=== PATIENT | female | born 1965 | race Hispanic/Latino ===

== ENCOUNTER 2016-10-28 12:21 | Inpatient (IN) | payer MEDICARE, OTHER ==
--- NOTE | 2016-10-28 17:48 | Emergency Department Report ---
ED General Adult HPI - General Chief complaint: Chest Pain Stated complaint: LEG PAIN Time Seen by Provider: 10/28/16 17:38 Source: patient, RN notes reviewed, old records reviewed Mode of arrival: Ambulatory Limitations: No Limitations - History of Present Illness Initial comments: This is a 51-year-old female, previously unknown to me. Patient has a history of diabetes, chronic pain, and his dependence on narcotics. Patient is currently a voluntary placement in a care facility trying to detox. Patient presents to the ER complaining of chest pain. The chest pain is right- sided. It does not radiate anywhere. It is associated with shortness of breath. She admits to cough, shortness of breath. There is no leg pain. There is no leg swelling. No recent trips greater than 4 hours. No recent hospital admissions. Does not change with food. Patient reports she feels like this feels like prior episodes of pneumonia. No exacerbating or relieving factors. -: Gradual Location: chest Quality: aching Consistency: intermittent Improves with: none Worsens with: none Associated Symptoms: chest pain, cough, shortness of breath, weakness - Related Data Home Medications Medication Instructions Recorded Confirmed Last Taken Unobtainable [Unobtainable] 01/09/14 01/09/14 Unknown Allergies Allergy/AdvReac Type Severity Reaction Status Date / Time iodine Allergy Shortness Verified 10/28/16 20:03 of Breath Penicillins Allergy Anaphylaxis Verified 10/28/16 20:03 ED Review of Systems ROS: Stated complaint: LEG PAIN Other details as noted in HPI Constitutional: malaise, weakness Eyes: denies: vision change ENT: denies: epistaxis Respiratory: cough, shortness of breath Cardiovascular: chest pain Gastrointestinal: denies: vomiting Genitourinary: as per HPI Musculoskeletal: back pain (chronic) Skin: as per HPI Neurological: headache Psychiatric: anxiety. denies: homicidal thoughts, suicidal thoughts ED Past Medical Hx - Past Medical History Previous Medical History?: Yes Hx Hypertension: No Hx Heart Attack/AMI: No Hx Congestive Heart Failure: No Hx Diabetes: Yes Hx Deep Vein Thrombosis: No Hx Pulmonary Embolism: No Hx GERD: No Hx Liver Disease: No Hx Renal Disease: No Hx Sickle Cell Disease: No Hx Arthritis: No Hx Headaches / Migraines: No Hx Seizures: No Hx Kidney Stones: No Hx Asthma: No Hx COPD: No Hx Tuberculosis: No Hx Dementia: No Hx HIV: No Additional medical history: Backpain, Hx arms broken - Surgical History Past Surgical History?: Yes Hx Coronary Stent: No Hx Open Heart Surgery: No Hx Pacemaker: No Hx Internal Defibrillator: No Hx Cholecystectomy: Yes Hx Appendectomy: No Hx Breast Surgery: No Additional Surgical History: hysterectomy - Social History Smoking Status: Current Every Day Smoker Substance Use Type: None - Medications Home Medications: Home Medications Medication Instructions Recorded Confirmed Last Taken Type Unobtainable [Unobtainable] 01/09/14 01/09/14 Unknown History ED Physical Exam - General Limitations: No Limitations General appearance: alert, in no apparent distress - Head Head exam: Present: atraumatic, normocephalic - Eye Eye exam: Present: normal appearance, EOMI. Absent: nystagmus - ENT ENT exam: Present: normal exam, mucous membranes dry - Neck Neck exam: Present: normal inspection, full ROM. Absent: tenderness, meningismus - Respiratory Respiratory exam: Present: normal lung sounds bilaterally. Absent: respiratory distress, wheezes, rales, rhonchi, stridor, chest wall tenderness - Cardiovascular Cardiovascular Exam: Present: normal rhythm, tachycardia, normal heart sounds. Absent: bradycardia, systolic murmur, diastolic murmur, rubs, gallop - GI/Abdominal GI/Abdominal exam: Present: soft, normal bowel sounds. Absent: distended, tenderness, guarding, rebound, rigid, pulsatile mass - Extremities Exam Extremities exam: Present: normal inspection, full ROM, normal capillary refill. Absent: tenderness, pedal edema, joint swelling, calf tenderness - Back Exam Back exam: Present: normal inspection, full ROM. Absent: tenderness, CVA tenderness (R), CVA tenderness (L), muscle spasm, paraspinal tenderness, vertebral tenderness - Neurological Exam Neurological exam: Present: alert, other (Extraocular movements intact. Tongue midline. No facial droop. Facial sensation intact to light touch in the V1, V2 , V3 distribution bilaterally. 5 and 5 strength in 4 extremities.. Sensation is intact to light touch in 4 extremities.). Absent: motor sensory deficit - Psychiatric Psychiatric exam: Present: anxious - Skin Skin exam: Present: warm, dry, intact, normal color. Absent: rash ED Course Vital Signs 10/28/16 10/28/16 10/28/16 13:02 16:02 18:00 Temperature 98.2 F Pulse Rate 105 H 109 H Respiratory 18 16 20 Rate Blood Pressure 106/71 Blood Pressure 103/66 [Left] O2 Sat by Pulse 100 98 98 Oximetry 10/28/16 10/28/16 10/28/16 18:42 19:00 19:48 Temperature Pulse Rate 98 H 105 H 104 H Respiratory 17 20 Rate Blood Pressure 93/66 93/66 Blood Pressure [Left] O2 Sat by Pulse 98 98 Oximetry - Reevaluation(s) Reevaluation #1: 10/28/16 17:58 Differential diagnosis: Intracranial injury, acute coronary syndrome, pneumonia , pulmonary embolus, drug seeking behavior Assessment and plan: 51-year-old female with right-sided chest pain, reported cough and shortness of breath. No DVT or pulmonary embolus risk factors, low risk by well's criteria. The patient is a poor historian, seems difficult to redirect, she does not meet 1013 criteria. She did report that she had a mechanical fall 2 days ago and landed on her left forehead. There is no midline cervical spine tenderness or step-offs. There is no extremity weakness or numbness, she has a GCS of 15, with an NIH score of 0. She was seen at another hospital, but reported that she was given only nitroglycerin and treated for "heart attack", and patient seems to think that because she has right-sided chest pain she is therefore excluded from acute coronary syndrome. The patient does have a chronic pain component, and she may benefit from analgesia in order to obtain better history. We will check basic laboratory studies, x-ray of the chest, CT scan of the head, and reassess. The patient does endorse ingesting crack and illegal drugs earlier on this week, but she is clinically sober at this time. 10/28/16 18:00 Reevaluation #2: 10/28/16 21:28 CT chest demonstrates right upper lobe infiltrate. PPD will be placed on the left upper extremity. Patient endorses anaphylaxis to penicillins. I will withhold fluoroquinolones in case the patient requires TB treatment. She will be treated for community-acquired pneumonia (presumed) with azithromycin and doxycycline. She will be placed on TB isolation. No pulmonary embolus is noted. Hospital physician, Dr. Dougherty accepts the patient to her service. ED Medical Decision Making - Lab Data Result diagrams: 10/28/16 17:55 10/28/16 17:55 Vital Signs 10/28/16 10/28/16 13:02 16:02 Temperature 98.2 F Pulse Rate 105 H 109 H Respiratory 18 16 Rate Blood Pressure 106/71 Blood Pressure 103/66 [Left] O2 Sat by Pulse 100 98 Oximetry - EKG Data 10/28/16 17:59 Sinus tachycardia, 105 bpm, atrial enlargement, abnormal EKG, not consistent with STEMI. Limited by motion artifact. - Radiology Data Radiology results: report reviewed, image reviewed X-ray chest demonstrates right perihilar atelectasis. CT chest M stretch right upper lobe infiltrate, no pulmonary embolus. Critical care attestation.: If time is entered above; I have spent that time in minutes in the direct care of this critically ill patient, excluding procedure time. ED Disposition Clinical Impression: Pneumonia Qualifiers: Pneumonia type: due to unspecified organism Laterality: right Lung location: upper lobe of lung Qualified Code(s): J18.9 - Pneumonia, unspecified organism Disposition: OP ADMITTED IP TO THIS HOSP Is pt being admited?: Yes Does the pt Need Aspirin: Yes Condition: Stable Instructions: Bacterial Pneumonia (ED)
[2016-10-28 18:06] LABS: Hematocrit 35.2 % (30.3-42.9); Mean Corpuscular HGB Conc 34 % (30-34); Mean Corpuscular Hemoglobin 31 pg (28-32); Mean Corpuscular Volume 92 fl (79-97); Platelet Count 244 K/mm3 (140-440); Red Blood Count 3.82 M/mm3 (3.65-5.03); Red Cell Distribution Width 13.6 % (13.2-15.2); White Blood Count 10.5 K/mm3 (4.5-11.0)
[2016-10-28 18:23] LABS: BUN/Creatinine Ratio 12.85; Blood Urea Nitrogen 9 mg/dL (7-17); Calcium 8.2 mg/dL (8.4-10.2); Carbon Dioxide 23 mmol/L (22-30); Chloride 97.5 mmol/L (98-107); Glucose 93 mg/dL (65-100); Potassium 3.9 mmol/L (3.6-5.0); Sodium 134 mmol/L (137-145)
[2016-10-28 18:26] LABS: Anion Gap 17 mmol/L
[2016-10-28 18:32] LABS: Albumin 3.1 g/dL (3.9-5); Albumin/Globulin Ratio 1.2 %; Bilirubin,Direct 0.4 mg/dL (0-0.2); Bilirubin,Indirect 0.8 mg/dL; Bilirubin,Total 1.2 mg/dL (0.1-1.2); Total Protein 5.6 g/dL (6.3-8.2)
[2016-10-28 18:34] LABS: INR 1.17 (0.87-1.13)
--- NOTE | 2016-10-28 18:59 | Cat Scan Report ---
FINAL REPORT EXAM: CT HEAD/BRAIN WO CON HISTORY: fall head trauma TECHNIQUE: Noncontrast serial axial images from skull base to vertex PRIORS: None. FINDINGS: There is no mass effect or midline shift. There are no abnormal intra or extra-axial fluid collections. Cortical sulci and lateral ventricles are within normal limits for size and configuration. Basilar cisterns are patent. No acute intracranial hemorrhage is identified. Visualized paranasal sinuses and mastoid air cells are well aerated. No acute osseous abnormality is identified. IMPRESSION: 1. No acute intracranial hemorrhage is identified.
[2016-10-28] MEDS ORDERED: NACL ONE (19:00)
[2016-10-28] MEDS: ASPIRIN PO ONE ×2 (19:06→19:48)
[2016-10-28] MEDS: NITROSTAT SL ONE ×2 (19:09→19:48)
[2016-10-28] MEDS: NACL 0.9% 1000 ML 1,000 ML IV ONE ×2 (19:11→19:48)
[2016-10-28] MEDS: DILAUDID IV ONE ×2 (19:11→19:49)
--- NOTE | 2016-10-28 21:04 | Cat Scan Report ---
FINAL REPORT EXAM: CT ANGIO CHEST HISTORY: cp sob TECHNIQUE: Serial axial images through the chest during intravenous administration of 100 milliliters Omni 350 contrast with coronal and sagittal reconstruction PRIORS: None. FINDINGS: Emphysematous changes are seen in the lungs, bilaterally. No pleural effusion is seen. There is an area of dense consolidation in the medial aspect of the right upper lobe that measures approximately 4 x 5 centimeters in axial dimension. The heart measures approximately 10.4 centimeters in length. There is a 2 centimeter right hilar lymph node noted. No abnormal filling defects are identified in the pulmonary arteries. No gross abnormality is seen in the visualized portion of the abdomen. There are degenerative changes in the spine. IMPRESSION: 1. No definite acute pulmonary embolism is identified. 2. Right upper lobe infiltrate. Follow-up is recommended following treatment to assure resolution. 3. Prominent right hilar lymph node is noted. This may be reactive.
[2016-10-28] MEDS ORDERED: ZITHROMAX PO ONE (21:14)
[2016-10-28] MEDS ORDERED: VIBRAMYCIN PO ONE (21:15)
[2016-10-28] MEDS ORDERED: APLISOL ID ONE (21:28)
[2016-10-28] MEDS ORDERED: TYLENOL PO PRN (23:52)
[2016-10-28] MEDS ORDERED: MILK OF MAGNESIA PO PRN (23:52)
[2016-10-28] MEDS ORDERED: DULCOLAX PR PRN (23:52)
[2016-10-28] MEDS ORDERED: ZOFRAN IV PRN (23:52)
--- NOTE | 2016-10-29 00:48 | History and Physical Report ---
History of Present Illness Date of examination: 10/28/16 Date of admission: 10/28/16 22:27 History of present illness: 51-year-old woman with a history of chronic back pain, depression was sent emergency room from [place] for evaluation. Patient states she checked herself in [place] because she was depressed, no suicidal or homicidal ideation. She felt extremely weak, they sent her here for evaluation. She states she had a cough, nonproductive, shortness of breath, no fever or chills. Unclear about weight loss, no night sweats. She states she fell at home, has a bruise on the right thigh. Patient states whenever she gets depressed she self medicates herself with just about any drugs. She has been using crack over the last few days PAST SURGICAL HISTORY: Hysterectomy, neck, back, bilateral arm surgery, cholecystectomy SOCIAL HISTORY: Smokes 6 cigarettes a day, denies alcohol, admit to drug use FAMILY HISTORY: Hypertension Medications and Allergies Allergies Allergy/AdvReac Type Severity Reaction Status Date / Time iodine Allergy Shortness Verified 10/28/16 20:03 of Breath Penicillins Allergy Anaphylaxis Verified 10/28/16 20:03 Home Medications Medication Instructions Recorded Confirmed Last Taken Type Unobtainable [Unobtainable] 01/09/14 01/09/14 Unknown History Active Meds: Active Medications Acetaminophen (Tylenol) 650 mg PO Q4H PRN PRN Reason: Pain MILD(1-3)/Fever >100.5/ANGUIANO Bisacodyl (Dulcolax) 10 mg [place] QDAY PRN PRN Reason: Constipation unrelieved by MOM Enoxaparin Sodium (Lovenox) 40 mg SUB-Q QDAY [facility] Ceftriaxone Sodium (Rocephin/Ns 1 Gm/50 Ml) 50 mls @ 100 mls/hr IV Q24HR [facility] PRN Reason: Protocol Magnesium Hydroxide (Milk Of Magnesia) 30 ml PO Q4H PRN PRN Reason: Constipation Ondansetron HCl (Zofran) 4 mg IV Q8H PRN PRN Reason: N/V unrelieved by Reglan Oxycodone/Acetaminophen (Percocet 5/325) 1 tab PO Q6H PRN PRN Reason: Pain, Moderate (4-6) Exam - Physical Exam Narrative exam: Gen. appearance: Patient lying in bed, no apparent distress HEENT: Normocephalic, atraumatic, pupils equally round and reactive to light, extraocular movement intact, and no sclericterus,. No JVD or thyromegaly or nodule,neck supple, no carotid bruit ,mucous membranes moist, no exudate or erythema Heart: S1, S2, regular rate and rhythm Lungs: Crackles in the right upper lobe, breathing comfortable Abdomen: Positive bowel sounds, nontender, nondistended, no organomegaly Extremity: No edema, cyanosis, clubbing Skin: No rash, nodules, warm, dry Neuro: Oriented 3, cranial nerves II-12 intact, speech is fluent, motor and sensory intact - Constitutional Vitals: Temp Pulse Resp BP Pulse Ox 98.2 F 104 H 20 93/66 98 10/28/16 13:02 10/28/16 19:48 10/28/16 19:00 10/28/16 19:48 10/28/16 19:00 Results - Labs CBC & Chem 7: 10/28/16 17:55 10/28/16 17:55 - Imaging and Cardiology Chest x-ray: image reviewed CT scan - chest: report reviewed Assessment and Plan Right upper lobe pneumonia, rule out to be Depression Admit to medicine Start IV Rocephin, azithromycin, obtain sputum culture for AFB Follow- PPD Start DVT prophylaxis
[2016-10-29] MEDS ORDERED: APLISOL ID ONE (01:57)
[2016-10-29] MEDS: PERCOCET 5/325 PO PRN ×4 (03:08→19:52)
[2016-10-29] MEDS: LOVENOX SUB-Q SCH (09:38)
--- NOTE | 2016-10-29 09:58 | XRay Report ---
Single view chest: History: Chest pain. Findings: Normal cardiomediastinal silhouette. Trachea is midline. No consolidation, pneumothorax or pleural effusion. Impression: No acute cardiopulmonary findings.
[2016-10-29] MEDS ORDERED: PERCOCET 5/325 PO PRN (13:26)
[2016-10-29] MEDS ORDERED: CITRATE OF MAGNESIA PO PRN (13:28)
--- NOTE | 2016-10-29 13:36 | Progress Note ---
Assessment and Plan Assessment and plan: Probable gram-negative pneumonia to rule out pulmonary TB - Patient is on IV antibiotics - On respiratory isolation - Chest x-ray shows right upper lobe infiltrates - PPD - ID consult Patient came from [facility] [place] - home medications reconciled Prophylaxis Lovenox Disposition - Continue inpatient care History Interval history: Complaints and all over, dry cough, no fever or chills, admitted for weight loss Hospitalist Physical - Physical exam Narrative exam: Not in cardiopulmonary distress. The patient appeared well nourished and normally developed. Vital signs as documented. Head exam is unremarkable. No scleral icterus . Neck is without jugular venous distension, thyromegaly, or carotid bruits. Lungs are clear to auscultation. Cardiac exam reveals regular rate and Rhythm. First and second heart sounds normal. No murmurs, rubs or gallops. Abdominal exam reveals normal bowel sounds, no masses, no organomegaly and no aortic enlargement. Extremities bruise on the right hip and right knee from fall. FIBER ARTIST: Alert and oriented 3. No focal weakness. - Constitutional Vitals: Temp Pulse Resp BP Pulse Ox 98.3 F 92 H 16 92/51 96 10/29/16 08:00 10/29/16 08:00 10/29/16 08:00 10/29/16 08:00 10/29/16 10:00 Results - Labs CBC & Chem 7: 10/28/16 17:55 10/28/16 17:55 Labs: Laboratory Last Values WBC 10.5 K/mm3 (4.5-11.0) 10/28/16 17:55 RBC 3.82 M/mm3 (3.65-5.03) 10/28/16 17:55 Hgb 12.0 gm/dl (10.1-14.3) 10/28/16 17:55 Hct 35.2 % (30.3-42.9) 10/28/16 17:55 MCV 92 fl (79-97) 10/28/16 17:55 MCH 31 pg (28-32) 10/28/16 17:55 MCHC 34 % (30-34) 10/28/16 17:55 RDW 13.6 % (13.2-15.2) 10/28/16 17:55 Plt Count 244 K/mm3 (140-440) 10/28/16 17:55 PT 14.8 Sec. (12.2-14.9) 10/28/16 17:55 INR 1.17 (0.87-1.13) H 10/28/16 17:55 D-Dimer 323.44 ng/mlDDU (0-234) H 10/28/16 17:55 Sodium 134 mmol/L (137-145) L 10/28/16 17:55 Potassium 3.9 mmol/L (3.6-5.0) 10/28/16 17:55 Chloride 97.5 mmol/L (98-107) L 10/28/16 17:55 Carbon Dioxide 23 mmol/L (22-30) 10/28/16 17:55 Anion Gap 17 mmol/L 10/28/16 17:55 BUN 9 mg/dL (7-17) 10/28/16 17:55 Creatinine 0.7 mg/dL (0.7-1.2) 10/28/16 17:55 Estimated GFR > 60 ml/min 10/28/16 17:55 BUN/Creatinine Ratio 12.85 % 10/28/16 17:55 Glucose 93 mg/dL (65-100) 10/28/16 17:55 Calcium 8.2 mg/dL (8.4-10.2) L 10/28/16 17:55 Total Bilirubin 1.2 mg/dL (0.1-1.2) 10/28/16 17:55 Direct Bilirubin 0.4 mg/dL (0-0.2) H 10/28/16 17:55 Indirect Bilirubin 0.8 mg/dL 10/28/16 17:55 AST 55 units/L (5-40) H 10/28/16 17:55 ALT 59 units/L (7-56) H 10/28/16 17:55 Alkaline Phosphatase 115 units/L (35-129) 10/28/16 17:55 Total Creatine Kinase 46 units/L (30-135) 10/28/16 17:55 Troponin T < 0.010 ng/mL (0.00-0.029) 10/28/16 17:55 Total Protein 5.6 g/dL (6.3-8.2) L 10/28/16 17:55 Albumin 3.1 g/dL (3.9-5) L 10/28/16 17:55 Albumin/Globulin Ratio 1.2 % 10/28/16 17:55 Lipase 19 units/L (13-60) 10/28/16 17:55
[2016-10-29] MEDS: NEURONTIN PO SCH ×2 (14:53→22:12)
[2016-10-29] MEDS: ABILIFY PO SCH (14:54)
--- NOTE | 2016-10-29 19:58 | Consultation ---
History of Present Illness - Reason for Consult Consult date: 10/29/16 RUL pneumonia Requesting physician: ADEEL PRESCOTT - History of Present Illness Irena Liu is a 51 y/o female with chronic neck and back pain and chronic substance abuse who was admitted to [facility] on with shortness of breath and chest pain. Chest CT scan shows a right upper lobe infiltrate. She was referred from [facility] where she was trying to get admitted to get back on chronic oxycodone. She states that she fell on 10/27 and injured her chest and right side and wonders if that could be what's going on. She has not had any significant cough, sputum production, hemoptysis, fever, chills or night sweats. She has no known exposure to anyone with tuberculosis and states that she was last tested with a skin test "when she was in [facility] several years ago was "and that it was negative. She last used drugs about a week ago with inhaled and amphetamines and crack cocaine. She states that she does not shoot up drugs. Her weight has been essentially stable. She does smoke up to 2 packs of cigarettes a day and has done so for many years. Review of systems General: See HPI CV: no exertional chest pain, no palpitations Chest: See HPI GI: no abdominal pain, no N/V, no diarrhea : no change in urinary frequency, no dysuria, no hematuria Skin: no rashes; Ext: Chronic back and neck pain as per HPI. Neuro: no headaches, no numbness/tingling, no tremors Endocrine: No history of diabetes. Psych: Chronic depression. Substance abuse as per above. Infectious diseases: No HIV risk factors, No history of STDs, No significant travel or animal contact history. Medications and Allergies Allergies Allergy/AdvReac Type Severity Reaction Status Date / Time iodine Allergy Shortness Verified 10/28/16 20:03 of Breath Penicillins Allergy Anaphylaxis Verified 10/28/16 20:03 Home Medications Medication Instructions Recorded Confirmed Last Taken Type Unobtainable [Unobtainable] 01/09/14 01/09/14 Unknown History Active Meds: Active Medications Acetaminophen (Tylenol) 650 mg PO Q4H PRN PRN Reason: Pain MILD(1-3)/Fever >100.5/ANGUIANO Aripiprazole (Abilify) 10 mg PO QDAY [facility] Last Admin: 10/29/16 14:54 Dose: 10 mg Bisacodyl (Dulcolax) 10 mg [place] QDAY PRN PRN Reason: Constipation unrelieved by MOM Clonazepam (Klonopin) 1 mg PO BID [facility] Last Admin: 10/29/16 14:53 Dose: 1 mg Enoxaparin Sodium (Lovenox) 40 mg SUB-Q QDAY [facility] Last Admin: 10/29/16 09:38 Dose: 40 mg Gabapentin (Neurontin) 300 mg PO Q8HR [facility] Last Admin: 10/29/16 14:53 Dose: 300 mg Ceftriaxone Sodium (Rocephin/Ns 1 Gm/50 Ml) 50 mls @ 100 mls/hr IV Q24HR [facility] PRN Reason: Protocol Magnesium Citrate (Citrate Of Magnesia) 300 ml PO QDAY PRN PRN Reason: Bowel Movement Magnesium Hydroxide (Milk Of Magnesia) 30 ml PO Q4H PRN PRN Reason: Constipation Ondansetron HCl (Zofran) 4 mg IV Q8H PRN PRN Reason: N/V unrelieved by Reglan Oxycodone/Acetaminophen (Percocet 5/325) 2 tab PO Q4H PRN PRN Reason: Pain, Moderate (4-6) Last Admin: 10/29/16 19:52 Dose: 2 tab Physical Examination - Physical Exam Narrative exam: GENERAL: Well-developed, thin, chronically ill appearing female who is alert and in no acute distress. HEAD: Normocephalic. No lesions seen. There is mild by temporalis muscle wasting. EYES: Pupils are equal reactive to light and accommodation. There is no scleral icterus. Optic fundi are not examined. EARS: External ears are normal. THROAT: Oropharynx is normal except for poor dentition with only a few teeth remaining but no signs of dental infection. There is no evidence of oral candidiasis or pharyngitis. NECK: Supple. No enlargement of the thyroid gland. No significant cervical lymphadenopathy. No jugular venous distention at 30. LUNGS: Clear with no adventitious sounds. CHEST: Patient has tenderness over the right anterior and lateral chest wall with no other object of abnormalities present. HEART: Regular rate. S1 and S2 are normal. There are no murmurs, gallops, clicks or rubs heard. ABDOMEN: Soft and nontender. Liver and spleen are not palpably enlarged or tender. No palpable masses. Bowel sounds are normoactive. EXTREMITIES: No rash, peripheral lymphadenopathy, clubbing or edema. There are ecchymoses over the right thigh without signs of secondary infection. : Not examined NEUROLOGIC: No focal findings. - Constitutional Vitals: Vital Signs Temp Pulse Resp BP Pulse Ox 98.4 F 92 H 15 92/59 100 10/29/16 15:25 10/29/16 15:25 10/29/16 15:25 10/29/16 15:25 10/29/16 15:25 Temperature -Last 24 Hours Temperature 98.4 F Temperature 98.3 F Temperature 98.3 F Results - Labs CBC & Chem 7: 10/28/16 17:55 10/28/16 17:55 Labs: Laboratory Tests 01/09/14 10/28/16 04:30 17:55 AST 55 H ALT 59 H Urine Opiates Screen Presumptive positive U Benzodiazepines Scrn Presumptive positive U Marijuana (THC) Screen Presumptive positive Microbiology 10/28/16 21:19 Peripheral/Venous Blood Culture - Preliminary Culture in Progress 10/28/16 21:19 Peripheral/Venous Blood Culture - Preliminary Culture in Progress Imagin/29: CXR: No acute cardiopulmonary findings. 10/28: CT angiography chest: No definite acute pulmonary embolism. There is an area of dense consolidation in the medial aspect of the right upper lobe measuring approximately 4 x [address]: No acute intracranial hemorrhage is identified Assessment and Plan Current medications: Ceftriaxone 1 g IV q24h 10/28 --> Previous antibiotics: Azithromycin 500 mg PO X 1 10/28 Doxycycline 100 mg po X 1 10/28 ASSESSMENT: Irena Liu is a 51 y/o female with chronic neck and back pain and chronic substance abuse who was admitted to [facility] on with shortness of breath and chest pain. Chest CT scan shows a right upper lobe infiltrate. Problem list: 1. Small right upper lobe infiltrate seen on CT scan only and not chest x-ray -Rule out pulmonary contusion after recent fall -Rule out neoplastic process -Infection seems less likely as she is without cough, fever, leukocytosis or any other signs or symptoms of infection -Doubt TB 2. Substance abuse -Crack cocaine, methamphetamines and marijuana -History of narcotics abuse 3. Chronic neck and back pain 4. Chronic depression PLAN: 1. Will review CT scan tomorrow with radiologist to see if there is evidence of any rib fractures and if findings could be consistent with pulmonary contusion 2. Stop antibiotics at this point and follow 3. Discontinue respiratory isolation 4. She has been on chronic Effexor and is worried about possible withdrawal with it not being given so I will restart this. Thank you for this consultation. We will follow with you. Delio Saenz MD [facility] Office: [phone]
[2016-10-29] MEDS: EFFEXOR PO SCH (22:12)
[2016-10-29] MEDS ORDERED: ROCEPHIN/NS 1 GM/50 ML 50 ML IV SCH (22:19)
[2016-10-30] MEDS: PERCOCET 5/325 PO PRN ×5 (00:22→19:02)
[2016-10-30] MEDS: NEURONTIN PO SCH ×3 (05:28→21:39)
[2016-10-30] MEDS: EFFEXOR PO SCH ×2 (09:14→21:40)
--- NOTE | 2016-10-30 09:27 | Progress Note ---
Assessment and Plan Current medications: None Previous antibiotics: Ceftriaxone 1 g IV daily ( 10/28 -10/29) Azithromycin 500 mg PO X 1 10/28 Doxycycline 100 mg po X 10/28 ASSESSMENT: Irena Liu is a 51 y/o female with chronic neck and back pain and chronic substance abuse who was admitted to [facility] on with shortness of breath and chest pain. Chest CT scan shows a right upper lobe infiltrate. Problem list: 1. Small right upper lobe infiltrate seen on CT scan only and not chest x-ray ( reviewed with radiologist - Dr Haas) -Rule out pulmonary contusion after recent fall -Rule out neoplastic process ( long history of cigarette abuse) -Infection seems less likely as she is without cough, fever, leukocytosis or any other signs or symptoms of infection -Doubt TB 2. Substance abuse -Crack cocaine, methamphetamines and marijuana -History of narcotics abuse 3. Chronic neck and back pain 4. Chronic depression PLAN: 1. Continue follow off antibiotics. 2. Suggest pulmonary evaluation for possible diagnostic bronchoscopy 3. No isolation required. Subjective Date of service: 10/30/16 Interval history: Feels well. Minimal cough. Right-sided chest pain mild. Objective - Exam Narrative Exam: HEENT: Pupils are equal reactive to light and accommodation. Conjunctiva clear. Oropharynx is normal with no evidence of oral candidiasis or pharyngitis. NECK: Supple. No enlargement of the thyroid gland. No significant cervical lymphadenopathy. No jugular venous distention at 30. LUNGS: Clear with no adventitious sounds. HEART: Regular rate. S1 and S2 are normal. There are no murmurs, gallops, clicks or rubs heard. ABDOMEN: Soft and nontender. Liver and spleen are not palpably enlarged or tender. No palpable masses. Bowel sounds are normoactive. EXTREMITIES: No rash, peripheral lymphadenopathy, clubbing or edema. SKIN: No other rash, ulcers or wounds. NEUROLOGIC: No focal findings. - Constitutional Vitals: Vital Signs Temp Pulse Resp BP Pulse Ox 97.3 F L 73 16 86/56 97 10/30/16 07:47 10/30/16 07:47 10/30/16 07:47 10/30/16 07:47 10/30/16 07:47 Temperature -Last 24 Hours Temperature 97.3 F Temperature 97.5 F Temperature 98.4 F - Labs CBC & Chem 7: 10/28/16 17:55 10/28/16 17:55
[2016-10-30] MEDS: LOVENOX SUB-Q SCH (09:28)
[2016-10-30] MEDS: ABILIFY PO SCH (09:50)
--- NOTE | 2016-10-30 10:07 | Admit Criteria Form ---
Admission Criteria Documentation: PNEUMONIA, COMMUNITY ACQUIRED Clinical Indications for Admission to Inpatient Care ( Place 'X' for any and all applicable criteria): Admission is indicated for ANY ONE of the following (1)(2)(3): [ ]I. Hypoxemia indicated by ANY ONE of the following: [ ]a) Oxygen saturation less than 90% while breathing room air [ ]b) PO2 less than 60 mm Hg (8.0 kPa) while breathing room air [ ]c) Chronic lung disease with significant deterioration from baseline oxygenation [X]II. Appropriate diagnostic testing and treatment unavailable in outpatient or recovery facility (eg,testing or infection control measures unavailable(10) [ ]III. Moderate-risk or high-risk category patients (Pneumonia Severity Index (PSI) class IV or V, or CURB-65 score of 3 or greater). [ ]IV. Outpatient treatment failure as indicated by ANY ONE of the following(9) : [ ]a) Failure to respond to antibiotic (eg, resistant organism) [ ]b) Clinically significant adverse effects from medication (eg, vomiting) [ ]c) Complications of pneumonia (eg, empyema, bacteremia) [ ]d) Significant worsening of comorbid cond necessitating inpatient care (eg, chronic heart failure) [ ]V. Intermediate-risk category patients (eg, PSI class III or CURB-65 score 2) who do not improve with initial therapy and observation. [ ]. Immunocompromised patients (eg, AIDS, chronic steroid use) at moderate or high risk based on clinical evaluation. [ ]VII. Complicated pleural effusions (eg, exudative, loculated) [X]VIII.Hemodynamic instability [ ] IX. Altered mental status that is severe or persistent. [ ]X. Dehydration that is severe or persistent. [ ]XI. Bacteremia [ ]XII. Respiratory finding (eg. tachypnea) that do not respond to outpatient or observation care treatment Extended stay beyond goal length of stay may be needed for (20) [ ]a) Unclear diagnosis [ ]b) Pleural disease [ ]c) Severe pneumonia or treatment failure (25 [ ]d) Respiratory failure (anticipate invasive or noninvasive ventilatory support) [ ]e) Abnormal serum electrolytes (serum Na concentration less than 135 mEq/L (mmol/L) (32)(33) [ ]f) Clinically significant comorbid illness (eg, heart failure, atrial fibrillation with rapid heart rate, alcohol withdrawal, renal insufficiency)(34)(35) [ ]g) Comorbid acute exacerbation of COPD(36) [ ]h) Concomitant diagnosis of malignancy that may be associated with malnutrition, immunologic impairment, or bronchial obstruction. [ ]i) Concomitant altered mental status [ ]j) Culture-identified Gram-negative or antibiotic-resistant organism (eg, Pseudomonas, methicillin-resistant Staphylococcus aureus)(30) [ ]k) Healthcare-associated pneumonia The original [employer] content created by [employer] has been revised. The portions of the content which have been revised are identified through the use of italic text or in bold, and [facility] has neither reviewed nor approved the modified material. All other unmodified content is copyright [facility]. Please see references footnoted in the original [facility] edition 2016 Admission Criteria Met: Yes
--- NOTE | 2016-10-30 12:33 | Consultation ---
History of Present Illness Consult date: 10/30/16 Requesting physician: ZAHIDA DOE Reason for consult: other (bronchoscopy) History of present illness: 51 y/o smoker, admitted with chest pain. CTA performed which was negative for PE but showed a right middle lobe lesion, mucous plugging, vs pneumonia vs atelectasis. Patient with no white count, no fever. No night sweats or unintentional weight loss. States that she cannot gain any weight. Remainder is negative. She denies hemoptysis. Past History Social history: smoking (pack per day for 37 years) Medications and Allergies Allergies Allergy/AdvReac Type Severity Reaction Status Date / Time iodine Allergy Shortness Verified 10/28/16 20:03 of Breath Penicillins Allergy Anaphylaxis Verified 10/28/16 20:03 Home Medications Medication Instructions Recorded Confirmed Last Taken Type Unobtainable [Unobtainable] 01/09/14 01/09/14 Unknown History Active Meds: Active Medications Acetaminophen (Tylenol) 650 mg PO Q4H PRN PRN Reason: Pain MILD(1-3)/Fever >100.5/ANGUIANO Aripiprazole (Abilify) 10 mg PO QDAY [facility] Last Admin: 10/30/16 09:50 Dose: 10 mg Bisacodyl (Dulcolax) 10 mg IA QDAY PRN PRN Reason: Constipation unrelieved by MOM Clonazepam (Klonopin) 1 mg PO BID [facility] Last Admin: 10/30/16 09:14 Dose: 1 mg Enoxaparin Sodium (Lovenox) 40 mg SUB-Q QDAY [facility] Last Admin: 10/30/16 09:28 Dose: 40 mg Gabapentin (Neurontin) 300 mg PO Q8HR [facility] Last Admin: 10/30/16 05:28 Dose: 300 mg Magnesium Citrate (Citrate Of Magnesia) 300 ml PO QDAY PRN PRN Reason: Bowel Movement Magnesium Hydroxide (Milk Of Magnesia) 30 ml PO Q4H PRN PRN Reason: Constipation Ondansetron HCl (Zofran) 4 mg IV Q8H PRN PRN Reason: N/V unrelieved by Reglan Oxycodone/Acetaminophen (Percocet 5/325) 2 tab PO Q4H PRN PRN Reason: Pain, Moderate (4-6) Last Admin: 10/30/16 09:50 Dose: 2 tab Venlafaxine HCl (Effexor) 75 mg PO BID [facility] Last Admin: 10/30/16 09:14 Dose: 75 mg Review of Systems All systems: negative Physical Examination Vital signs: Vital Signs Temp Pulse Resp BP Pulse Ox 98.2 F 105 H 18 106/71 100 10/28/16 13:02 10/28/16 13:02 10/28/16 13:02 10/28/16 13:02 10/28/16 13:02 General appearance: no acute distress, alert Eyes: injected ENT: other (poor dentition) Neck: supple Ascultation: Bilateral: clear Cardiovascular: regular rate and rhythm Gastrointestinal: normoactive bowel sounds Extremities: no cyanosis, no edema normal mental status, non-focal exam Results - Laboratory Findings CBC and BMP: 10/28/16 17:55 10/28/16 17:55 PT/INR, D-dimer PT 14.8 Sec. (12.2-14.9) 10/28/16 17:55 INR 1.17 (0.87-1.13) H 10/28/16 17:55 D-Dimer 323.44 ng/mlDDU (0-234) H 10/28/16 17:55 - Diagnostic Findings CT scan - chest: image reviewed (COPD with emphysema, upper lobes, lesion in the right middle lobe, very anterior, infront of heart, likely why not seen on CXR) Assessment and Plan 51 y/o smoker admitted with chest pain and abnormal CT of chest. 1. Will perform bronchoscopy tomorrow afternoon 2. Will perform wash, doubt that biopsy is needed as this is not a mass 3. Mainly performing to rule out anything endobronchially. If present will sample 4. Thank you for this consult. 5. Smoking cessation counseling done
[2016-10-30 13:44] LABS: INR 0.99 (0.87-1.13)
[2016-10-30 13:45] LABS: Partial Thromboplastin Time 41.2 Sec. (24.2-36.6)
--- NOTE | 2016-10-30 13:57 | Progress Note ---
Assessment and Plan Assessment and plan: Probable lung mass - I do was consulted and he doesn't think the patient has infection - The patient may have some contusion or mass - Pulmonary was consulted and Dr. Dickinson going to do bronchoscopy tomorrow Patient came [facility] - home medications reconciled Prophylaxis Lovenox Disposition -Will be discharged tomorrow after bronchoscopy History Interval history: Patient was seen and evaluated this morning. She has mild cough but denied fever or chills. Hospitalist Physical - Physical exam Narrative exam: Not in cardiopulmonary distress. The patient appeared well nourished and normally developed. Vital signs as documented. Head exam is unremarkable. No scleral icterus . Neck is without jugular venous distension, thyromegaly, or carotid bruits. Lungs are clear to auscultation. Cardiac exam reveals regular rate and Rhythm. First and second heart sounds normal. No murmurs, rubs or gallops. Abdominal exam reveals normal bowel sounds, no masses, no organomegaly and no aortic enlargement. Extremities bruise on the right hip and right knee from fall. 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 No focal weakness. - Constitutional Vitals: Temp Pulse Resp BP Pulse Ox 97.3 F L 73 16 86/56 97 10/30/16 07:47 10/30/16 07:47 10/30/16 07:47 10/30/16 07:47 10/30/16 07:47 Results - Labs CBC & Chem 7: 10/28/16 17:55 10/28/16 17:55 Labs: Laboratory Last Values WBC 10.5 K/mm3 (4.5-11.0) 10/28/16 17:55 RBC 3.82 M/mm3 (3.65-5.03) 10/28/16 17:55 Hgb 12.0 gm/dl (10.1-14.3) 10/28/16 17:55 Hct 35.2 % (30.3-42.9) 10/28/16 17:55 MCV 92 fl (79-97) 10/28/16 17:55 MCH 31 pg (28-32) 10/28/16 17:55 MCHC 34 % (30-34) 10/28/16 17:55 RDW 13.6 % (13.2-15.2) 10/28/16 17:55 Plt Count 244 K/mm3 (140-440) 10/28/16 17:55 PT 13.0 Sec. (12.2-14.9) 10/30/16 13:09 INR 0.99 (0.87-1.13) 10/30/16 13:09 APTT 41.2 Sec. (24.2-36.6) H 10/30/16 13:09 D-Dimer 323.44 ng/mlDDU (0-234) H 10/28/16 17:55 Sodium 134 mmol/L (137-145) L 10/28/16 17:55 Potassium 3.9 mmol/L (3.6-5.0) 10/28/16 17:55 Chloride 97.5 mmol/L (98-107) L 10/28/16 17:55 Carbon Dioxide 23 mmol/L (22-30) 10/28/16 17:55 Anion Gap 17 mmol/L 10/28/16 17:55 BUN 9 mg/dL (7-17) 10/28/16 17:55 Creatinine 0.7 mg/dL (0.7-1.2) 10/28/16 17:55 Estimated GFR > 60 ml/min 10/28/16 17:55 BUN/Creatinine Ratio 12.85 % 10/28/16 17:55 Glucose 93 mg/dL (65-100) 10/28/16 17:55 Calcium 8.2 mg/dL (8.4-10.2) L 10/28/16 17:55 Total Bilirubin 1.2 mg/dL (0.1-1.2) 10/28/16 17:55 Direct Bilirubin 0.4 mg/dL (0-0.2) H 10/28/16 17:55 Indirect Bilirubin 0.8 mg/dL 10/28/16 17:55 AST 55 units/L (5-40) H 10/28/16 17:55 ALT 59 units/L (7-56) H 10/28/16 17:55 Alkaline Phosphatase 115 units/L (35-129) 10/28/16 17:55 Total Creatine Kinase 46 units/L (30-135) 10/28/16 17:55 Troponin T < 0.010 ng/mL (0.00-0.029) 10/28/16 17:55 Total Protein 5.6 g/dL (6.3-8.2) L 10/28/16 17:55 Albumin 3.1 g/dL (3.9-5) L 10/28/16 17:55 Albumin/Globulin Ratio 1.2 % 10/28/16 17:55 Lipase 19 units/L (13-60) 10/28/16 17:55
[2016-10-31] MEDS: PERCOCET 5/325 PO PRN ×3 (01:21→20:37)
[2016-10-31] MEDS: NEURONTIN PO SCH ×3 (05:49→21:13)
[2016-10-31] MEDS: LOVENOX SUB-Q SCH (09:20)
[2016-10-31] MEDS: EFFEXOR PO SCH ×2 (09:20→21:13)
[2016-10-31] MEDS: ABILIFY PO SCH (09:20)
--- NOTE | 2016-10-31 09:46 | Progress Note ---
Assessment and Plan Current medications: None Previous antibiotics: Ceftriaxone 1 g IV daily ( 10/28 -10/29) Azithromycin 500 mg PO X 1 10/28 Doxycycline 100 mg po X 10/28 ASSESSMENT: Irena Liu is a 51 y/o female with chronic neck and back pain and chronic substance abuse who was admitted to [facility] on with shortness of breath and chest pain. Chest CT scan shows a right upper lobe infiltrate. Problem list: 1. Small right upper lobe infiltrate seen on CT scan only and not chest x-ray ( reviewed with radiologist - Dr Haas) -Rule out pulmonary contusion after recent fall -Rule out neoplastic process ( long history of cigarette abuse) -Infection seems less likely as she is without cough, fever, leukocytosis or any other signs or symptoms of infection -Doubt TB 2. Substance abuse -Crack cocaine, methamphetamines and marijuana -History of narcotics abuse 3. Chronic neck and back pain 4. Chronic depression PLAN: 1. Continue follow off antibiotics. 2. Awaits bronchoscopy today. 3. No isolation required. Subjective Date of service: 10/31/16 Interval history: Little change. Awaits bronchoscopy. Objective - Exam Narrative Exam: HEENT: Pupils are equal reactive to light and accommodation. Conjunctiva clear. Oropharynx is normal with no evidence of oral candidiasis or pharyngitis. NECK: Supple. No enlargement of the thyroid gland. No significant cervical lymphadenopathy. No jugular venous distention at 30. LUNGS: Clear with no adventitious sounds. HEART: Regular rate. S1 and S2 are normal. There are no murmurs, gallops, clicks or rubs heard. ABDOMEN: Soft and nontender. Liver and spleen are not palpably enlarged or tender. No palpable masses. Bowel sounds are normoactive. EXTREMITIES: No rash, peripheral lymphadenopathy, clubbing or edema. SKIN: No other rash, ulcers or wounds. NEUROLOGIC: No focal findings. - Constitutional Vitals: Vital Signs Temp Pulse Resp BP Pulse Ox 97.7 F 80 16 90/53 99 10/31/16 07:45 10/31/16 07:45 10/31/16 07:45 10/31/16 07:45 10/31/16 07:45 Temperature -Last 24 Hours Temperature 97.7 F Temperature 98.1 F - Labs CBC & Chem 7: 10/28/16 17:55 10/28/16 17:55 Labs: Abnormal lab results 10/30/16 Range/Units 13:09 APTT 41.2 H (24.2-36.6) Sec.
[2016-10-31] MEDS ORDERED: HURRICAINE ONE 20% TOPICAL SPRAY MM (10:28)
[2016-10-31] MEDS ORDERED: ADRENALIN ONE (10:28)
[2016-10-31] MEDS ORDERED: XYLOCAINE 1% 20 mL ONE (10:28)
[2016-10-31] MEDS ORDERED: NACL 0.9% 1000 ML 1,000 ML ONE (10:28)
[2016-10-31] MEDS ORDERED: LIDOCAINE VISCOUS 2% ONE (10:29)
[2016-10-31] MEDS ORDERED: VERSED ONE (11:10)
[2016-10-31] MEDS ORDERED: DIPRIVAN 10 MG/ML IV ONE ×2 (11:11)
[2016-10-31] MEDS ORDERED: SUBLIMAZE ONE (11:11)
[2016-10-31] MEDS ORDERED: WATER FOR IRRIG STERILE IR ONE (11:12)
--- NOTE | 2016-10-31 11:38 | Anesthesia Consultation ---
Anesthesia Consult and Med Hx Date of service: 10/31/16 - Airway Anesthetic Teeth Evaluation: Poor ROM Head & Neck: Inadequate Mental/Hyoid Distance: Adequate Mallampati Class: Class II Intubation Access Assessment: Probably Good - Pulmonary Exam CTA: Yes - Cardiac Exam Cardiac Exam: RRR - Pre-Operative Health Status ASA Pre-Surgery Classification: ASA3 Proposed Anesthetic Plan: MAC - Pre-Anesthesia Comment Pre-Anesthesia Comments: most teeth are missing. No llose teeth per patient report. H/O cervical fusion. - Pulmonary Hx Smoking: Yes Hx Asthma: No SOB: No COPD: Yes Hx Pneumonia: Yes Hx Sleep Apnea: No - Cardiovascular System Hx Hypertension: No Hx Coronary Artery Disease: No Hx Heart Attack/AMI: Yes (11/16) Hx Angina: No Hx Percutaneous Transluminal Coronary Angioplasty (PTCA): No Hx Pacemaker: No Hx Internal Defibrillator: No Hx Valvular Heart Disease: No Hx Heart Murmur: No Hx Peripheral Vascular Disease: No - Central Nervous System Hx Seizures: No CVA: No Hx Back Pain: No Hx Psychiatric Problems: Yes - Gastrointestinal Hx Ulcer: No - Endocrine Hx Renal Disease: No Hx End Stage Renal Disease: No Hx Cirrhosis: No Hx Liver Disease: No Hx Non-Insulin Dependent Diabetes: (H/O hypoglycemia) Hx Hypothyroidism: No Hx Hyperthyroidism: No - Hematic Hx Anemia: Yes Hx Sickle Cell Disease: No - Other Systems Hx Alcohol Use: Yes Hx Substance Use: Yes Hx Cancer: No Hx Obesity: No (cachectic) - Additional Comments Anesthesia Medical History Comments: H/O polysubstance abuse. Last meth use one week ago.
--- NOTE | 2016-10-31 11:38 | Anesthesia Day of Surgery ---
Anesthesia Day of Surgery - Day of Surgery Patient Examined: Yes Patient H&P Reviewed: Yes Patient is NPO: Yes
[2016-10-31] MEDS ORDERED: NACL 0.9% 1000 ML 1,000 ML IV SCH (12:00)
--- NOTE | 2016-10-31 13:30 | Procedure Note ---
Date of procedure: 10/31/16 Pre-op diagnosis: Abnormal CT scan Post-op diagnosis: same Procedure: Bronchoscopy with Wash After obtaining informed consent, patient brought to endo and prepped. Nares numbed but very tight so elected to go through the mouth. VC visualized and good AD and AB duction. Lidocaine used times 3 for adequate anesthesia. Scope passed through cords and lidocaine applied to trachea and to right main stem. Thick white secretions seen. No endobronchial lesion. Airway inspection of right upper middle and lower lobe seen. No endobronchial lesion. Wash done in right middle lobe to remove secretions. Remainder of secretions removed from airway and scope retracted. patient tolerated procedure well with no complications. Unfortunately specimen was lossed and not enough able to send to the lab for sample. Anesthesia: MAC Surgeon: SUMA GLASS Estimated blood loss: none Pathology: none Specimen disposition: discarded (by accident) Condition: stable Disposition: floor
--- NOTE | 2016-10-31 13:31 | Progress Note ---
Assessment and Plan 51 y/o smoker admitted with chest pain and abnormal CT of chest. 1. Bronch today. Subjective Date of service: 10/31/16 Interval history: No acute events. Stable overnight. Had some mild epigastric pain Objective Vital Signs - 12hr 10/31/16 10/31/16 10/31/16 07:45 11:19 11:21 Temperature 97.7 F 97.5 F L Pulse Rate 70 70 Pulse Rate [ 80 Apical] Respiratory 16 16 16 Rate Blood Pressure 95/58 95/58 Blood Pressure 90/53 [Right Arm] O2 Sat by Pulse 99 97 97 Oximetry Constitutional: no acute distress, alert Eyes: injected ENT: other (poor dentition) Neck: supple Ascultation: Bilateral: clear Cardiovascular: regular rate and rhythm Gastrointestinal: normoactive bowel sounds Extremities: no cyanosis, no edema Neurologic: normal mental status, non-focal exam CBC and BMP: 10/28/16 17:55 10/28/16 17:55 ABG, PT/INR, D-dimer: PT/INR, D-dimer PT 13.0 Sec. (12.2-14.9) 10/30/16 13:09 INR 0.99 (0.87-1.13) 10/30/16 13:09 D-Dimer 323.44 ng/mlDDU (0-234) H 10/28/16 17:55 Abnormal lab findings: Abnormal Labs 10/30/16 13:09 APTT 41.2 H
--- NOTE | 2016-10-31 14:27 | Post Anesthesia Evaluation ---
- Post Anesthesia Evaluation Patient Participated: Yes Airway Patent: Yes Stable Respiratory Function: Yes Nausea/Vomiting: No Temp > 96.8F: Yes Pain Manageable: Yes Adequeate Hydration: Yes Anesthesia Complications: No Block Receding Appropriately: Not Applicable Patient on Ventilator: No
[2016-10-31 23:14] VITALS: BP 95/63
[2016-11-01] MEDS: PERCOCET 5/325 PO PRN ×2 (03:42→15:10)
--- NOTE | 2016-11-01 14:24 | Progress Note ---
Assessment and Plan - Patient Problems (1) Pneumonia Current Visit: Yes Status: Acute Qualifiers: Pneumonia type: P Aspiration pneumonia type: A Laterality: L Lung location: L Plan to address problem: Pulmonary consulted. Pending bronch in am. (2) Depression Current Visit: Yes Status: Chronic Qualifiers: Depression Type: D Major depression recurrence: M Active/Remission status : A Major depression episode severity: M Psychotic features: P Trimester: T Plan to address problem: Pt denies SI/HI, or formulation of plan. D/C to anchor after bronchoscopy (3) DVT prophylaxis Current Visit: Yes Status: Acute History Interval history: Pt resting in bed, Pt denies pain, no reported nursing events. Hospitalist Physical - Constitutional Vitals: Temp Pulse Resp BP Pulse Ox 98.2 F 74 20 95/63 98 10/31/16 23:00 10/31/16 23:00 10/31/16 23:00 10/31/16 23:00 10/31/16 23:00 General appearance: Present: no acute distress - EENT Eyes: Present: PERRL, EOM intact ENT: hearing intact - Neck Neck: Present: supple - Respiratory Respiratory effort: normal Respiratory: bilateral: diminished - Cardiovascular Rhythm: regular Heart Sounds: Present: S1 & S2 - Extremities Extremities: no ischemia Peripheral Pulses: within normal limits - Abdominal General gastrointestinal: soft, non-tender, non-distended - Integumentary Integumentary: Present: clear, dry - Psychiatric Psychiatric: appropriate mood/affect, cooperative - Neurologic Neurologic: CNII-XII intact Results - Labs CBC & Chem 7: 10/28/16 17:55 10/28/16 17:55 Labs: Laboratory Last Values WBC 10.5 K/mm3 (4.5-11.0) 10/28/16 17:55 RBC 3.82 M/mm3 (3.65-5.03) 10/28/16 17:55 Hgb 12.0 gm/dl (10.1-14.3) 10/28/16 17:55 Hct 35.2 % (30.3-42.9) 10/28/16 17:55 MCV 92 fl (79-97) 10/28/16 17:55 MCH 31 pg (28-32) 10/28/16 17:55 MCHC 34 % (30-34) 10/28/16 17:55 RDW 13.6 % (13.2-15.2) 10/28/16 17:55 Plt Count 244 K/mm3 (140-440) 10/28/16 17:55 PT 13.0 Sec. (12.2-14.9) 10/30/16 13:09 INR 0.99 (0.87-1.13) 10/30/16 13:09 APTT 41.2 Sec. (24.2-36.6) H 10/30/16 13:09 D-Dimer 323.44 ng/mlDDU (0-234) H 10/28/16 17:55 Sodium 134 mmol/L (137-145) L 10/28/16 17:55 Potassium 3.9 mmol/L (3.6-5.0) 10/28/16 17:55 Chloride 97.5 mmol/L (98-107) L 10/28/16 17:55 Carbon Dioxide 23 mmol/L (22-30) 10/28/16 17:55 Anion Gap 17 mmol/L 10/28/16 17:55 BUN 9 mg/dL (7-17) 10/28/16 17:55 Creatinine 0.7 mg/dL (0.7-1.2) 10/28/16 17:55 Estimated GFR > 60 ml/min 10/28/16 17:55 BUN/Creatinine Ratio 12.85 % 10/28/16 17:55 Glucose 93 mg/dL (65-100) 10/28/16 17:55 Calcium 8.2 mg/dL (8.4-10.2) L 10/28/16 17:55 Total Bilirubin 1.2 mg/dL (0.1-1.2) 10/28/16 17:55 Direct Bilirubin 0.4 mg/dL (0-0.2) H 10/28/16 17:55 Indirect Bilirubin 0.8 mg/dL 10/28/16 17:55 AST 55 units/L (5-40) H 10/28/16 17:55 ALT 59 units/L (7-56) H 10/28/16 17:55 Alkaline Phosphatase 115 units/L (35-129) 10/28/16 17:55 Total Creatine Kinase 46 units/L (30-135) 10/28/16 17:55 Troponin T < 0.010 ng/mL (0.00-0.029) 10/28/16 17:55 Total Protein 5.6 g/dL (6.3-8.2) L 10/28/16 17:55 Albumin 3.1 g/dL (3.9-5) L 10/28/16 17:55 Albumin/Globulin Ratio 1.2 % 10/28/16 17:55 Lipase 19 units/L (13-60) 10/28/16 17:55
--- NOTE | 2016-11-01 14:27 | Discharge Summary ---
Providers - Providers Date of Admission: 10/28/16 22:27 Attending physician: ROB WETZEL 10/29/16 08:24 Consult to Physician [CONS] Routine Consulting Provider: ZAHIDA WARREN Reason For Exam: RUL infiltrate, patient is from [facility] r/o TB Place consult to:: dr. warren Notified:: answering service Phone number called:: Was contact made?: Yes If yes, spoke with:: jaxson Time called:: 09:28 10/30/16 09:14 Consult to Physician [CONS] Routine Consulting Provider: SUMA GLASS Reason For Exam: Right upper lobe infiltrate/Mass Place consult to:: Pulmonary Notified:: office Phone number called:: Was contact made?: Yes If yes, spoke with:: darrion Time called:: 09:46 Comment:: For possible bronchoscope Primary care physician: CONSULTING SOLUTION MANAGER Hospitalization Condition: Stable Hospital course: 51 YO female admitted for Pneumonia, Pt found to have elevated Ddimer. Pt underwent CTA chest which showed RUL consolidation. Pt underwent bronchoscopy but no significant findings. ID consulted for suspected TB which was ruled out. Pt convalesced well during hospital course. Pt medically optimized and back to usual state of health. Pt evaluated prior to discharge but no significant new physical exam findings. Pt discharged back to [facility]. Pt instructed to f/u pcp 1wk, pulmonary prn. 34 minutes dedicated to patient discharge. Disposition: DC/TX PSY HOSP/PSY UNIT - Discharge Diagnoses (1) Pneumonia Status: Acute Qualifiers: Pneumonia type: P Aspiration pneumonia type: A Laterality: L Lung location: L (2) Depression Status: Chronic Qualifiers: Depression Type: D Major depression recurrence: M Active/Remission status : A Major depression episode severity: M Psychotic features: P Trimester: T (3) DVT prophylaxis Status: Acute Core Measure Documentation - Palliative Care Palliative Care/ Comfort Measures: Not Applicable - Core Measures Any of the following diagnoses?: none Exam - Constitutional Vitals: Temp Pulse Resp BP Pulse Ox 98.2 F 74 20 95/63 98 10/31/16 23:00 10/31/16 23:00 10/31/16 23:00 10/31/16 23:00 10/31/16 23:00 General appearance: Present: no acute distress, well-nourished - EENT Eyes: Present: PERRL ENT: hearing intact, clear oral mucosa - Neck Neck: Present: supple, normal ROM - Respiratory Respiratory effort: normal Respiratory: bilateral: CTA - Cardiovascular Heart Sounds: Present: S1 & S2. Absent: rub, click - Extremities Extremities: pulses symmetrical, No edema Peripheral Pulses: within normal limits - Abdominal General gastrointestinal: Present: soft, non-tender, non-distended, normal bowel sounds Female genitourinary: Present: normal - Integumentary Integumentary: Present: clear, warm, dry - Musculoskeletal Musculoskeletal: gait normal, strength equal bilaterally - Psychiatric Psychiatric: appropriate mood/affect, intact judgment & insight - Neurologic Neurologic: CNII-XII intact, moves all extremities Plan Activity: advance as tolerated Follow up with: PRIMARY CARE, [Primary Care Provider] - 3-5 Days Prescriptions: Azithromycin [Zithromax TAB] 500 mg PO QDAY #3 tablet
[2016-11-01] MEDS: NEURONTIN PO SCH (15:05)
--- NOTE | 2016-11-01 16:00 | Progress Note ---
Assessment and Plan 51 y/o smoker admitted with chest pain and abnormal CT of chest. 1. No objection to discharge 2. Smoking cessation 3. Can follow up in office in 10-14 days. Would need full PFT, six minute walk and repeat 2 view CXR. Subjective Date of service: 11/01/16 Interval history: No acute events overnight. Tolerated bronch. No complications. Being discharged Objective Constitutional: no acute distress, alert Eyes: injected ENT: other (poor dentition) Neck: supple Ascultation: Bilateral: clear Cardiovascular: regular rate and rhythm Gastrointestinal: normoactive bowel sounds Extremities: no cyanosis, no edema Neurologic: normal mental status, non-focal exam CBC and BMP: 10/28/16 17:55 10/28/16 17:55 ABG, PT/INR, D-dimer: PT/INR, D-dimer PT 13.0 Sec. (12.2-14.9) 10/30/16 13:09 INR 0.99 (0.87-1.13) 10/30/16 13:09 D-Dimer 323.44 ng/mlDDU (0-234) H 10/28/16 17:55 Abnormal lab findings: Abnormal Labs 10/30/16 13:09 APTT 41.2 H
--- NOTE | 2016-11-06 09:28 | Query- Nutrition ---
Huyen Og Date:_11/06/16 Evp General Counsel/CDS:_Eber/Hermelindo Mari Phone#:_[phone] Exercise your independent professional judgment when responding to query. Questions asked do not imply a particular answer is desired or expected. We greatly appreciate your clarification on this issue. Clinical Documentation States: 51 Y/O Female admitted on 10/28/16 with Hx of Chronic back pain and depression presents from [place] with nonproductive cough and shortness of breath, diagnosed with Pneumonia. Clinical Findings Show: BMI:15.3 Protein: 5.6 Please select the most appropriate option 3 [] Mild Malnutrition [] Mild - Moderate Malnutrition [x] Moderate - Severe Malnutrition [] Severe Malnutrition Serum Albumin 2.8 to 3.4 g/dl or Pre-albumin 5 to 17 mg/dl1,2 Inadequate nutritional intake1,2,3,4 NPO > 5 days Weight loss: 5% in 1 month or 7.5% in 3 months or 10% in 6 months1, 3,4 BMI 16 to 18.4 or Weight <90% of ideal body weight1,2,3,4 Serum Albumin < 2.8 g/ dl1,2 Lymphocytes < 1500/ L2 Inadequate nutritional intake3, high stress e.g. major trauma, sepsis,pancreatitis, strange etc. Decubitus ulcers1,2, , skin breakdown2, easy hair pluckability2 Weight <80% standard for height2 Triceps skin fold <3 mm2 Mid-arm muscle circumference <15 cm2 Creatinine-height index <60% standard2 [ ] Cachexia [ ] Emaciated w/Malnutrition [ ] Other: [ ] Unable to determine [ ] Comment/Explanation: Present on Admission: [ x] Yes (Y) [ ] Clinically undeterminable (W) [ ] No (N) Please also document response in your Progress Notes and/or Discharge Summary and indicate if the condition was present on admission. MTDD
--- NOTE | 2016-11-13 08:12 | Query- General ---
Huyen Borges___Columba Dougherty Date:___11/13/16 Inseminator/CDS:____Cr / Dana Phone#:___[phone] Exercise your independent professional judgment when responding to this query. Questions asked do not imply a particular answer is desired or expected. We greatly appreciate your clarification on this issue. Clinical Documentation States: 51 year old female was admitted on 10/29/16. The H&P states " Patient states that she checked herself in [place] because she was depressed, no suicidal or homicidal ideation. Patient states whenever she gets depressed she self medicates herself with just about any drugs " Given the above clinical scenario can you please provide an appropriate diagnosis based on your knowledge of the patient: Please clarify the Substance abuse counseling status: PHYSICIAN RESPONSE: [ ] Substance abuse counseling done, amount of time spent [ ] Substance abuse counseling was not done [ ] Other( Please specify) [ ] Not applicable Present on Admission: [ ] Yes (Y) [ ] Clinically undeterminable (W) [ ]No(N) Please also document response in your Progress Notes and/or Discharge Summary and indicate if the condition was present on admission. CLAIR
--- NOTE | 2016-11-27 10:09 | Query- Pneumonia ---
Huyen Borges___Matt Date:___11/27/16 Chief Librarian Branch Or Department/CDS:____Cr / Theresa Phone#: [phone] Exercise your independent professional judgment when responding to query. Questions asked do not imply a particular answer is desired or expected. We greatly appreciate your clarification on this issue. Clinical Documentation States: 51 year old female was admitted on 10/29/16. The Progress note states (10/29/16) states " Probable gram -negative pneumonia to rule out pulmonary TB. Patient is on IV antibiotics, on respiratory isolation " The discharge summary states " Pneumonia: acute " Clinical Findings Show: Please further specify known or suspected Etiology: [ ] Aspiration Pneumonia [ x] Gram Negative Pneumonia [ ] Gram Positive Pneumonia [ ] Pseudomonas Pneumonia [ ] MRSA - related Pneumonia [ ] Viral Pneumonia [ ] Candidal Pneumonia [ ] Postoperative Pneumonia [ ] Lobar/Basilar Pneumonia [ ] Community Acquired Pneumonia [ ] Bacterial, other (Please specify organism if possible) [ ] Other: [ ] Unable to determine Present on Admission: [ x] Yes (Y) [ ] Clinically undeterminable (W) [ ] No (N) Please also document response in your Progress Notes and/or Discharge Summary and indicate if the condition was present on admission. CLAIR
== END 2016-11-01 15:30 | DRG 177 ==
LOC: ED 12:21 → 3A 22:27
PROVIDERS: ADMIT Internal Medicine; ATTEND Internal Medicine
PROC: HZ34ZZZ Individual Counseling for Substance Abuse Treatment, Interpersonal (ICD-10-PCS; principal; 2016-10-31)
PROC: 0B958ZX Drainage of Right Middle Lobe Bronchus, Via Natural or Artificial Opening Endoscopic, Diagnostic (ICD-10-PCS; principal; 2016-10-31)
DX: J15.6 Pneumonia due to other Gram-negative bacteria (principal); E43 Unspecified severe protein-calorie malnutrition; F12.10 Cannabis abuse, uncomplicated; F14.10 Cocaine abuse, uncomplicated; M54.9 Dorsalgia, unspecified; G89.29 Other chronic pain; F17.210 Nicotine dependence, cigarettes, uncomplicated; F32.9 Major depressive disorder, single episode, unspecified; F15.10 Other stimulant abuse, uncomplicated; M54.2 Cervicalgia; J44.9 Chronic obstructive pulmonary disease, unspecified; Z90.710 Acquired absence of both cervix and uterus; Z90.49 Acquired absence of other specified parts of digestive tract; Z82.49 Family history of ischemic heart disease and other diseases of the circulatory system; Z88.0 Allergy status to penicillin; Z88.8 Allergy status to other drugs, medicaments and biological substances; Z71.6 Tobacco abuse counseling; Z71.51 Drug abuse counseling and surveillance of drug abuser
CPT/HCPCS: 36415; 70450; 71010; 71275; 80048; 80074; 82550; 83690; 84484; 85027; 85379; 85610; 85730; 87040; 93005; 93010; 96374; 99406; J0171; J1170; J1650; J2250; J2704; J3010; J7030; Q9967

== ENCOUNTER 2017-02-13 04:35 | Emergency (ER) | payer MEDICARE, OTHER ==
[2017-02-13 05:10] VITALS: BP 109/75
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
[2017-02-13 13:24] LABS: Urine Drugs of Abuse Note Disclamer
[2017-02-13 13:43] LABS: Bilirubin,Urine NEG (Negative); Blood,Urine NEG (Negative); Ketones,Urine NEG (Negative); Leukocyte Esterase,Urine NEG (Negative); Mucus,Urine FEW /HPF; Nitrite,Urine NEG (Negative); Protein,Urine <15 mg/dL mg/dL (Negative); RBC,Urine < 1.0 /HPF (0.0-6.0); Urobilinogen,Urine < 2.0 mg/dL (<2.0); WBC,Urine < 1.0 /HPF (0.0-6.0)
[2017-02-13 13:59] LABS: Basophils % (Auto) 0.9 % (0.0-1.8); Eosinophils % (Auto) 7.9 % (0.0-4.3); Hematocrit 44.6 % (30.3-42.9); Hemoglobin 14.5 gm/dl (10.1-14.3); Mean Corpuscular HGB Conc 33 % (30-34); Mean Corpuscular Hemoglobin 29 pg (28-32); Mean Corpuscular Volume 89 fl (79-97); Platelet Count 300 K/mm3 (140-440); Red Blood Count 4.99 M/mm3 (3.65-5.03); Red Cell Distribution Width 15.5 % (13.2-15.2); White Blood Count 7.7 K/mm3 (4.5-11.0)
[2017-02-13 14:06] LABS: Albumin 3.8 g/dL (3.9-5); Albumin/Globulin Ratio 1.3 %; Bilirubin,Total 0.4 mg/dL (0.1-1.2); Calcium 8.9 mg/dL (8.4-10.2); Chloride 101.6 mmol/L (98-107); Potassium 3.5 mmol/L (3.6-5.0); Total Protein 6.7 g/dL (6.3-8.2)
== END 2017-02-13 15:18 | disposition left against medical advice (07) ==
LOC: ED 04:35 → EEVIPCON 04:35 → ED 15:18
DX: R07.89 Other chest pain (principal); F14.10 Cocaine abuse, uncomplicated; F15.10 Other stimulant abuse, uncomplicated; I25.2 Old myocardial infarction; E11.9 Type 2 diabetes mellitus without complications; M19.90 Unspecified osteoarthritis, unspecified site; J44.9 Chronic obstructive pulmonary disease, unspecified; F17.200 Nicotine dependence, unspecified, uncomplicated; Z90.710 Acquired absence of both cervix and uterus; Z90.49 Acquired absence of other specified parts of digestive tract; Z88.0 Allergy status to penicillin
CPT/HCPCS: 36415; 71020; 71100; 80053; 80307; 81001; 84484; 85025; 93005; 93010; 99284; G0480; 80320